=== PATIENT | male | born 1990 | race Caucasian/White ===

== ENCOUNTER 2021-06-08 19:06 | Emergency (ER) | payer OTHER ==
--- OUTSIDE RECORDS SUMMARY | 2021-06-08 19:08 | XMS REPORT | Continuity of Care Document ---
:1990 Author Organization [facility] t Address [address] Reyes [address] [place] [id number] Care Team Providers Name Role Phone Unavailable Unavailable Unavailable Problems This patient has no known problems. Allergies, Adverse Reactions, Alerts This patient has no known allergies or adverse reactions. Medications This patient has no known medications. Immunizations Ordered Immunization Filled Immunization Date Status Commen ts Source Name Name Pfizer COVID-19 Vaccine Pfizer COVID-19 2021-01-14 Completed Vaccine 00:00:00 Procedures This patient has no known procedures. Encounters Start End Encounter Admission Attending Care Care Encounter Source Date/Time Date/Time Type Type Clinicians Facility Department ID 2021-01-14 2021-01-14 Outpatient [facility] [id number] [facility] 00:00:00 00:00:00 V Results This patient has no known results.
[2021-06-08] MEDS ORDERED: VANCOMYCIN 1 GM/VIAL ONE (20:43)
[2021-06-08] MEDS ORDERED: NA CHLORIDE 0.9% 250 ML ONE (20:43)
[2021-06-08 21:01] LABS: Absolute Lymphocytes (CBC) 1.6 K/uL (0.7-4.9); Basophils % 0.5 % (0-1.3); Hematocrit 44.3 % (39.6-49.0); Lymphocytes % 22.3 % (15.3-44.8); MPV 6.9 fL (7.6-11.3); RBC Red Blood Cell Count 5.02 M/uL (4.33-5.43)
--- NOTE | 2021-06-08 21:44 | RAD REPORT ---
EXAM DESCRIPTION: US - Extremity Nonvascular Limited - 06/08/2021 8:22 pm CLINICAL HISTORY: Pain;Swelling COMPARISON: No comparisons TECHNIQUE: Limited sonographic evaluation of the right thigh performed and an area of 2 open wounds. FINDINGS: In the superficial subcutaneous soft tissues 1 centimeter deep to the skin surface there i s a 2 x 1 x 1.8 centimeter heterogeneous hypoechoic collection. More superiorly there is a 1 x 1 x 1 centimeter similar heterogeneous hypoechoic collection in the superficial 1st centimeter subcutaneous tissues. These areas match up with wounds on the skin surface. Infectious/inflammatory collections a re most likely, these may be phlegmonous and not easily drainable. IMPRESSION: Small subcutaneous phlegmonous collections are present in the upper right thigh at the a thiago of open wounds. The collections are approximately 2 cm and 1 cm in size likely containing thickened infectious/inflam matory debris.
[2021-06-08] MEDS ORDERED: BACI/NEOMYCIN/POLY OINT 15GM TOP ONE (22:53)
--- NOTE | 2021-06-08 23:04 | ER ---
Nurse's Notes [facility] Name: Slade Contreras Age: 31 yrs Sex: Male : 1990 Arrival Date: 06/08/2021 Time: 19:10 Bed 26 Private MD: Diagnosis: Cellulitis of right lower limb Presentation: 06/08 19:24 Chief complaint: Patient states: I went to [facility] on of this week for an ld1 infection in my right thigh. They cut, drained and packed the wound. I am still taking my antibiotics but it is not healing very well. Coronavirus screen: At this time, the client does not indicate any symptoms associated with coronavirus-19. Ebola Screen: No symptoms or risks identified at this time. Initial Sepsis Screen: Does the patient meet any 2 criteria? No. Patient's initial sepsis screen is negative. Does the patient have a suspected source of infection? No. Patient's initial sepsis screen is negative. Risk Assessment: Do you want to hurt yourself or someone else? Patient reports no desire to harm self or others. Onset of symptoms was June 08, 2021. 19:24 Method Of Arrival: Ambulatory ld1 19:24 Acuity: RADHA 3 ld1 Triage Assessment: 19:28 General: Appears in no apparent distress. comfortable, Behavior is calm, cooperative, ld1 appropriate for age. Pain: Denies pain. EENT: No signs and/or symptoms were reported regarding the EENT system. Neuro: Level of Consciousness is awake, alert, obeys commands, Oriented to person, place, time, situation, Appropriate for age. Cardiovascular: Capillary refill < 3 seconds Patient's skin is warm and dry. Respiratory: Airway is patent Respiratory effort is even, unlabored, Respiratory pattern is regular, symmetrical. GI: Abdomen is flat, non-distended. : No signs and/or symptoms were reported regarding the genitourinary system. Derm:. Derm: Wound noted right quadriceps. Musculoskeletal: No signs and/or symptoms reported regarding the musculoskeletal system. Historical: - Allergies: 19:28 No Known Allergies; ld1 - Home Meds: 19:28 None [Active]; ld1 - PMHx: 19:28 None; ld1 - PSHx: 19:28 None; ld1 - Immunization history:: Adult Immunizations up to date, Client reports having NOT received the Covid vaccine. - Social history:: Smoking status: Patient denies any tobacco usage or history of. Patient uses alcohol, occasionally. Screenin:01 Abuse screen: none. Nutritional screening: No deficits noted. Tuberculosis screening: sv1 No symptoms or risk factors identified. Fall Risk None identified. Assessment: 21:01 Reassessment: Labs collected and sent. Vancomycin started. Resting quietly.. sv1 23:03 Reassessment: Tolerated Vanco infusion well. No adverse reaction noted. . sv1 23:26 Reassessment: Cleared for discharge to home by the provider.. sv1 Vital Signs: 19:24 BP 133 / 69; Pulse 72; Resp 18; Temp 98.1(O); Pulse Ox 100% on R/A; Weight 86.18 kg; ld1 Height 5 ft. 9 in. (175.26 cm); Pain 0/10; 20:05 BP 122 / 69; Pulse 82; Resp 17; Temp 98.4; Pulse Ox 98% ; sv1 21:03 BP 120 / 69; Pulse 73; Resp 16; Pulse Ox 97% 0 lpm ; sv1 23:02 BP 117 / 67; Pulse 74; Resp 18; Temp 98.5; Pulse Ox 99% 0 lpm ; sv1 19:24 Body Mass Index 28.06 (86.18 kg, 175.26 cm) ld1 ED Course: 19:10 Patient arrived in ED. kc5 19:24 Slade Cortez MD is Attending Physician. kdr 19:26 Triage completed. ld1 19:28 Arm band placed on right wrist. ld1 19:57 Andrew Mcguire, LASHAWN is Primary Nurse. sv1 20:22 US Extrmty Nonvasular Limited In Process Unspecified. EDMS 20:41 Basic Metabolic Panel Sent. sv1 20:41 CBC with Automated Diff Sent. sv1 20:41 Chem 7 Sent. sv1 20:41 CBC with Diff Sent. sv1 21:01 Patient has correct armband on for positive identification. Bed in low position. Call sv1 light in reach. Side rails up X 1. 21:01 No provider procedures requiring assistance completed. Inserted saline lock: 20 gauge sv1 in right antecubital area, using aseptic technique. 23:23 IV discontinued. sv1 Administered Medications: 21:00 Drug: vancoMYCIN 1 grams Route: IVPB; Infused Over: 2 hrs; Site: right antecubital; sv1 22:58 Follow up: Response: No adverse reaction; IV Status: Completed infusion; IV Intake: sv1 250ml 23:00 Drug: Bacitracin Ointment (500 unit/g) 1 application Route: Topical; Site: right thigh; sv1 Intake: 22:58 IV: 250ml; Total: 250ml. sv1 Outcome: 23:03 Discharge ordered by . kdr 23:23 Discharged to home ambulatory. sv1 23:23 Condition: improved 23:23 Discharge instructions given to patient, family. 23:27 Patient left the ED. sv1 Signatures: Dispatcher [employer] EDMS Slade Cortez MD MD kdr Dibbern, Lauren, RN RN andrew1 Judy Shabazz 5 Andrew Mcguire RN RN sv1
--- NOTE | 2021-06-08 23:04 | EDPHYS ---
Physician Documentation [facility] Name: Slade Contreras Age: 31 yrs Sex: Male : 1990 Arrival Date: 06/08/2021 Time: 19:10 Bed 26 Private MD: ED Physician Slade Cortez HPI: 06/08 20:02 This 31 yrs old Male presents to ER via Ambulatory with complaints of LEG INFECTION. kdr 20:02 The patient was seen at [facility] on last Tuesday for swelling and cellulitis to the right kdr thigh. Patient states that overall he had been affected with this problem for about 2 to 3 weeks. At [place], they I indeed an apparent abscess. According the patient they were able to express some pus and a lot of blood. Patient states it was most painful thing he ever experienced. He now claims that the overall cellulitis has improved somewhat but is still very tender and painful and very erythematous and indurated. Onset: The symptoms/episode began/occurred 3 week(s) ago. Severity of symptoms: At their worst the symptoms were mild moderate just prior to arrival, in the emergency department the symptoms are unchanged. The patient has not experienced similar symptoms in the past. The patient has been recently seen at an urgent care, Last Tuesday. Historical: - Allergies: 19:28 No Known Allergies; ld1 - Home Meds: 19:28 None [Active]; ld1 - PMHx: 19:28 None; ld1 - PSHx: 19:28 None; ld1 - Immunization history:: Adult Immunizations up to date, Client reports having NOT received the Covid vaccine. - Social history:: Smoking status: Patient denies any tobacco usage or history of. Patient uses alcohol, occasionally. ROS: 20:02 Constitutional: Negative for fever, chills, and weight loss, Eyes: Negative for injury, kdr pain, redness, and discharge, ENT: Negative for injury, pain, and discharge, Neck: Negative for injury, pain, and swelling, Cardiovascular: Negative for chest pain, palpitations, and edema, Respiratory: Negative for shortness of breath, cough, wheezing, and pleuritic chest pain, Abdomen/GI: Negative for abdominal pain, nausea, vomiting, diarrhea, and constipation, Back: Negative for injury and pain, : Negative for injury, bleeding, discharge, and swelling, MS/Extremity: Negative for injury and deformity, Neuro: Negative for headache, weakness, numbness, tingling, and seizure activity. Psych: Negative for depression, anxiety, suicide ideation, homicidal ideation, and hallucinations, Allergy/Immunology: Negative for hives, rash, and allergies, Endocrine: Negative for neck swelling, polydipsia, polyuria, polyphagia, and marked weight changes, Hematologic/Lymphatic: Negative for swollen nodes, abnormal bleeding, and unusual bruising. 20:02 Skin: Positive for abscess, cellulitis, erythema, swelling. Exam: 20:02 Constitutional: This is a well developed, well nourished patient who is awake, alert, kdr and in no acute distress. Head/Face: Normocephalic, atraumatic. Eyes: Pupils equal round and reactive to light, extra-ocular motions intact. Lids and lashes normal. Conjunctiva and sclera are non-icteric and not injected. Cornea within normal limits. Periorbital areas with no swelling, redness, or edema. Neck: Trachea midline, no thyromegaly or masses palpated, and no cervical lymphadenopathy. Supple, full range of motion without nuchal rigidity, or vertebral point tenderness. No Meningismus. 20:02 Skin: cellulitis, that is mild, that is moderate, induration, that is moderate is noted, located on the lateral aspect of right thigh and right quadriceps. Vital Signs: 19:24 BP 133 / 69; Pulse 72; Resp 18; Temp 98.1(O); Pulse Ox 100% on R/A; Weight 86.18 kg; ld1 Height 5 ft. 9 in. (175.26 cm); Pain 0/10; 20:05 BP 122 / 69; Pulse 82; Resp 17; Temp 98.4; Pulse Ox 98% ; sv1 21:03 BP 120 / 69; Pulse 73; Resp 16; Pulse Ox 97% 0 lpm ; sv1 23:02 BP 117 / 67; Pulse 74; Resp 18; Temp 98.5; Pulse Ox 99% 0 lpm ; sv1 19:24 Body Mass Index 28.06 (86.18 kg, 175.26 cm) ld1 MDM: 20:02 Data reviewed: vital signs, nurses notes, lab test result(s), radiologic studies. kdr Counseling: I had a detailed discussion with the patient and/or guardian regarding: the historical points, exam findings, and any diagnostic results supporting the discharge/admit diagnosis, lab results, radiology results. 23:03 Patient medically screened. kdr 06/08 19:53 Order name: CBC with Diff kdr 06/08 19:53 Order name: Chem 7 kdr 06/08 19:53 Order name: US Extrmty Nonvasular Limited; Complete Time: 22:09 kdr 06/08 19:53 Order name: CBC with Automated Diff; Complete Time: 21:11 EDMS 06/08 19:53 Order name: Basic Metabolic Panel; Complete Time: 21:18 EDMS Administered Medications: 21:00 Drug: vancoMYCIN 1 grams Route: IVPB; Infused Over: 2 hrs; Site: right antecubital; sv1 22:58 Follow up: Response: No adverse reaction; IV Status: Completed infusion; IV Intake: sv1 250ml 23:00 Drug: Bacitracin Ointment (500 unit/g) 1 application Route: Topical; Site: right thigh; sv1 Disposition Summary: 06/08/21 23:03 Discharge Ordered Location: Home kdr Problem: new kdr Symptoms: have improved kdr Condition: Stable kdr Diagnosis - Cellulitis of right lower limb kdr Followup: kdr - With: Private Physician - When: 2 - 3 days - Reason: If symptoms return, Further diagnostic work-up, Recheck today's complaints, Continuance of care, Re-evaluation by your physician Discharge Instructions: - Discharge Summary Sheet kdr - Cellulitis, Adult kdr Forms: - Medication Reconciliation Form kdr - Thank You Letter kdr - Antibiotic Education kdr Signatures: Dispatcher [employer] Slade Florentino MD MD kdr Irma Morillo, RN RN ld1 Andrew Mcguire, LASHAWN RN sv1
[2021-06-08 23:39] VITALS: BP 117/67; TEMP 98.5; O2SAT 99
== END 2021-06-08 23:27 | disposition home or self-care (01) ==
LOC: ER 19:06
DX: L03.115 Cellulitis of right lower limb (principal)
CPT/HCPCS: 96365; 85025; 80048; 36415; 76882; 99284; 96366; J3370; J7050

== ENCOUNTER 2021-10-02 18:14 | Emergency (ER) | payer OTHER ==
--- OUTSIDE RECORDS SUMMARY | 2021-10-02 18:17 | XMS REPORT | Continuity of Care Document ---
:1990 Author Organization [facility] t Address [address] [place] [address] Care Team Providers Name Role Phone Mary Arzola Attending Clinician Unavailable Chance Zuñiga Admitting Clinician Unavailable Payers Payer Name Policy Type Policy Number Effective Date Expiration Date S ource Problems This patient has no known problems. Allergies, Adverse Reactions, Alerts Allergy Allergy Status Severity Reaction(s) Onset Inactive Treating Comm ents Source Name Type Date Date Clinician No Known DA Active U 2007- [facility] Contrast 1-13 Clear Allergie 00:00: [address] No Known DA Active U 2007-06 [facility] Drug -13 Clear Allergie 00:00: [place] [address] No Known DA Active U 2007-06 [facility] Food -13 Clear Allergie 00:00: [address] No Known DA Active U 2007-06 [facility] Other -13 Clear Allergie 00:00: [address] Medications This patient has no known medications. Immunizations Ordered Immunization Filled Immunization Date Status Commen ts Source Name Name Pfizer COVID-19 Vaccine Pfizer COVID-19 2021-01-14 Completed Vaccine 00:00:00 Procedures This patient has no known procedures. Encounters Start End Encounter Admission Attending Care Care Encounter Source Date/Time Date/Time Type Type Clinicians Facility Department ID 2021-08-18 Inpatient KULDIP Morton [facility] [id number] [facility] 16:03:[address] 2021-07-21 Inpatient KULDIP Morton [facility] [id number] [facility] 16:03:00 [facility] [id number] [facility] 2021-07-15 Inpatient ROZ Arzola, [facility] [id number] [facility] 15:55:00 [facility] [id number] [facility] 2021-08-14 2021-08-17 Outpatient ROZ Arzola, [facility] [id number] [facility] 15:10:00 00:00:00 [facility] [id number] [facility] 2021-07-27 2021-07-27 Outpatient ROZ Arzola, [facility] [id number] [facility] 14:55:00 14:55:00 [facility] [id number] [facility] 2021-07-20 2021-07-20 Outpatient ROZ Arzola, [facility] [id number] [facility] 16:11:00 00:00:00 [facility] [id number] [facility] 2021-07-18 2021-07-18 Outpatient ROZ Arzola, KALIECL LABO [id number] [facility] 01:25:00 01:25:00 Agustín [id number] [facility] 2021-07-17 2021-07-17 Outpatient ROZ Arzola, [facility] [id number] [facility] 13:30:00 13:30:00 [facility] [id number] [facility] 2021-01-14 2021-01-14 Outpatient [facility] [id number] [facility] 00:00:00 00:00:00 V Results This patient has no known results.
--- NOTE | 2021-10-02 18:36 | EDPHYS ---
Physician Documentation [facility] Name: Slade Contreras Age: 31 yrs Sex: Male : 1990 Arrival Date: 10/02/2021 Time: 18:17 Bed 10 Private MD: ED Physician Duane Dubois HPI: 10/02 18:36 This 31 yrs old Male presents to ER via Unassigned with complaints of Nose Problem. ms3 18:36 The patient presents with Sore in nare. Onset: The symptoms/episode began/occurred ms3 acutely, 3 day(s) ago. Modifying factors: The symptoms are alleviated by nothing. the symptoms are aggravated by Pressure to nose. Associated signs and symptoms: The patient has no apparent associated signs or symptoms. Severity of symptoms: At their worst the symptoms were severe in the emergency department the symptoms are unchanged Pain is currently a 9 / 10. 31 -year-old male presents for ulceration and nose that has been ongoing for 3 days. Patient states pain is a 9/10 and is described as being sensitive. Patient states touching his nose makes the pain worse. Patient denies alleviating factors. Patient states he has not taken any medications for the pain.. Historical: - Allergies: 18:57 No Known Allergies; ab2 - PMHx: 18:57 None; ab2 - PSHx: 18:57 None; ab2 - Immunization history:: Adult Immunizations up to date. - Social history:: Smoking status: Patient denies any tobacco usage or history of. ROS: 18:36 Constitutional: Negative for fever, and chills. Neck: Negative for injury, pain, and ms3 swelling, Cardiovascular: Negative for chest pain, and palpitations. Respiratory: Negative for shortness of breath, cough, wheezing, and pleuritic chest pain, Abdomen/GI: Negative for abdominal pain, nausea, vomiting, diarrhea, and constipation, MS/Extremity: Negative for injury and deformity, Skin: Negative for injury, rash, and discoloration. 18:36 ENT: Positive for Nose pain. 18:36 All other systems are negative. Exam: 18:36 Constitutional: This is a well developed, well nourished patient who is awake, alert, ms3 and in no acute distress. Head/Face: Normocephalic, atraumatic. Chest/axilla: Normal chest wall appearance and motion. Nontender with no deformity. Cardiovascular: Regular rate and rhythm with a normal S1 and S2. No gallops, murmurs, or rubs. Normal PMI, no JVD. No pulse deficits. Respiratory: Lungs have equal breath sounds bilaterally, clear to auscultation and percussion. No rales, rhonchi or wheezes noted. No increased work of breathing, no retractions or nasal flaring. Abdomen/GI: Soft, non-tender, with normal bowel sounds. No distension or tympany. No guarding or rebound. No evidence of tenderness throughout. 18:36 ENT: Nose: Abscess with drainage in right nare. Vital Signs: 18:54 BP 135 / 87; Pulse 96; Resp 18; Temp 98.3; Pulse Ox 100% on R/A; Weight 83.91 kg; ab2 Height 5 ft. 10 in. (177.80 cm); Pain 8/10; 18:54 Body Mass Index 26.54 (83.91 kg, 177.80 cm) ab2 MDM: 18:35 Patient medically screened. ms3 18:36 Differential diagnosis: nasal abscess. Data reviewed: vital signs, nurses notes. ms3 Counseling: I had a detailed discussion with the patient and/or guardian regarding: the historical points, exam findings, and any diagnostic results supporting the discharge/admit diagnosis, the need for outpatient follow up, to return to the emergency department if symptoms worsen or persist or if there are any questions or concerns that arise at home. ED course: Discussed physical exam and treatment plan with patient. Patient to follow-up with Dr. Millard in 2 to 3 days. Patient understands agrees with plan. All questions were answered. Return precautions discussed include worsening symptoms, or any other concerns. 19:34 ED course: Signed out to me by Dr. Wheeler, pending cbc and bmp, by request from mother, rn not likely to foreign exchange clerk. . 10/02 18:59 Order name: CBC with Diff; Complete Time: 19:46 ms3 10/02 18:59 Order name: BMP; Complete Time: 19:46 ms3 Administered Medications: 20:10 Drug: Bactrim (trimethoprim-sulfamethoxazole) (160 mg-800 mg (DS) 1 tablet Route: PO; ll3 Disposition Summary: 10/02/21 18:35 Discharge Ordered Location: Home ms3 Problem: new ms3 Symptoms: are unchanged ms3 Condition: Stable ms3 Diagnosis - Abscess, furuncle and carbuncle of nose ms3 Followup: ms3 - With: Fany Millard MD - When: 2 - 3 days - Reason: Recheck today's complaints Discharge Instructions: - Discharge Summary Sheet ms3 - Nasal Abscess ms3 Forms: - Medication Reconciliation Form ms3 - Thank You Letter ms3 - Antibiotic Education ms3 - Prescription Opioid Use ms3 Prescriptions: - Bactrim DS 800-160 mg Oral Tablet - take 1 tablet by ORAL route every 12 hours for 10 days; 20 tablet; Refills: 0, ms3 Product Selection Permitted Signatures: Dispatcher [employer] EDMS Duane Dubois MD MD rn Sims, Marcus, DO DO ms3 Zohreh Wolf RN RN ll3 Akash Cardoza ab2 Corrections: (The following items were deleted from the chart) 18:57 18:57 Allergies: No Known Allergies; ab2 ab2 18:57 18:57 PMHx: None; ab2 ab2 18:57 18:57 PSHx: Unable to Obtain; ab2 ab2
[2021-10-02 19:22] LABS: Absolute Lymphocytes (CBC) 1.7 K/uL (0.7-4.9); Lymphocytes % 15.6 % (15.3-44.8); MPV 7.3 fL (7.6-11.3); RBC Red Blood Cell Count 4.98 M/uL (4.33-5.43)
[2021-10-02 19:33] LABS: Potassium 3.6 mmol/L (3.5-5.1)
[2021-10-02] MEDS ORDERED: SMZ./TMP. 800/160 MG TABLET ONE (20:15)
--- NOTE | 2021-10-02 20:20 | ER ---
Nurse's Notes [facility] Name: Slade Contreras Age: 31 yrs Sex: Male : 1990 Arrival Date: 10/02/2021 Time: 18:17 Bed 10 Private MD: Diagnosis: Abscess, furuncle and carbuncle of nose Presentation: 10/02 18:54 Chief complaint: Patient states: "I have had this lump on my nose for 3 days, but it ab2 has gotten bigger over the last day.". Coronavirus screen: Vaccine status: Patient reports receiving the 2nd dose of the covid vaccine. Client denies travel out of the [place] in the last 14 days. At this time, the client does not indicate any symptoms associated with coronavirus-19. Ebola Screen: Patient negative for fever greater than or equal to 101.5 degrees Fahrenheit, and additional compatible Ebola Virus Disease symptoms Patient denies exposure to infectious person. Patient denies travel to an Ebola-affected area in the 21 days before illness onset. No symptoms or risks identified at this time. Initial Sepsis Screen: Does the patient meet any 2 criteria? No. Patient's initial sepsis screen is negative. Does the patient have a suspected source of infection? No. Patient's initial sepsis screen is negative. Risk Assessment: Do you want to hurt yourself or someone else? Patient reports no desire to harm self or others. Onset of symptoms is unknown. 18:54 Method Of Arrival: Ambulatory ab2 18:54 Acuity: RADHA 4 ab2 Triage Assessment: 18:57 General: Appears in no apparent distress. comfortable, Behavior is calm, cooperative, ab2 appropriate for age. Pain: Complains of pain in nose. EENT: No deficits noted. No signs and/or symptoms were reported regarding the EENT system. Reports pain in nose. Neuro: Level of Consciousness is awake, alert, obeys commands, Oriented to person, place, time, situation, Appropriate for age Insurance And Benefits Clerk are equal bilaterally Moves all extremities. Gait is steady, Speech is normal, Facial symmetry appears normal. Cardiovascular: No deficits noted. Denies chest pain, shortness of breath, Patient's skin is warm and dry. Respiratory: Airway is patent Respiratory effort is even, unlabored, Respiratory pattern is regular, symmetrical. GI: No deficits noted. No signs and/or symptoms were reported involving the gastrointestinal system. : No deficits noted. No signs and/or symptoms were reported regarding the genitourinary system. Derm: Abscess located on nose. Musculoskeletal: No deficits noted. No signs and/or symptoms reported regarding the musculoskeletal system. Historical: - Allergies: 18:57 No Known Allergies; ab2 - PMHx: 18:57 None; ab2 - PSHx: 18:57 None; ab2 - Immunization history:: Adult Immunizations up to date. - Social history:: Smoking status: Patient denies any tobacco usage or history of. Screenin:58 Abuse screen: Denies threats or abuse. Denies injuries from another. Nutritional ab2 screening: No deficits noted. Tuberculosis screening: No symptoms or risk factors identified. Fall Risk None identified. Vital Signs: 18:54 BP 135 / 87; Pulse 96; Resp 18; Temp 98.3; Pulse Ox 100% on R/A; Weight 83.91 kg; ab2 Height 5 ft. 10 in. (177.80 cm); Pain 8/10; 18:54 Body Mass Index 26.54 (83.91 kg, 177.80 cm) ab2 ED Course: 18:17 Patient arrived in ED. ja2 18:27 Alexx Wheeler DO is Attending Physician. ms3 18:35 Fany Millard MD is Referral Physician. ms3 18:57 Triage completed. ab2 18:58 Arm band placed on left wrist. ab2 18:58 No provider procedures requiring assistance completed. ab2 18:59 Patient has correct armband on for positive identification. Bed in low position. Call ab2 light in reach. 19:33 Attending Physician role handed off by Alexx Wheeler DO rn 19:33 Duane Dubois MD is Attending Physician. rn 20:19 Patient did not have IV access during this emergency room visit. ll3 Administered Medications: 20:10 Drug: Bactrim (trimethoprim-sulfamethoxazole) (160 mg-800 mg (DS) 1 tablet Route: PO; ll3 Outcome: 18:35 Discharge ordered by . ms3 20:19 Discharged to home ambulatory, with family. ll3 20:19 Condition: stable 20:19 Discharge instructions given to patient, family, Instructed on discharge instructions, follow up and referral plans. medication usage, Demonstrated understanding of instructions, follow-up care, medications, Prescriptions given X 1. 20:20 Patient left the ED. ll3 Signatures: Duane Dubois MD MD rn Sims, Marcus, DO DO ms3 Tere Weber2 Zohreh Wolf RN RN ll3 Akash Cardoza ab2 Corrections: (The following items were deleted from the chart) 18:57 18:57 Allergies: No Known Allergies; ab2 ab2 18:57 18:57 PMHx: None; ab2 ab2 18:57 18:57 PSHx: Unable to Obtain; ab2 ab2
[2021-10-02 23:39] VITALS: BP 135/87; TEMP 98.3; O2SAT 100
== END 2021-10-02 20:20 | disposition home or self-care (01) ==
LOC: ER 18:14
DX: J34.0 Abscess, furuncle and carbuncle of nose (principal)
CPT/HCPCS: 36415; 80048; 85025; 99283

== ENCOUNTER 2022-01-23 20:19 | Emergency (ER) | payer OTHER ==
--- OUTSIDE RECORDS SUMMARY | 2022-01-23 20:22 | XMS REPORT | Continuity of Care Document ---
:1990 Author Organization [facility] t Address [address] [place] [address] Care Team Providers Name Role Phone Agustín Arzola Attending Clinician Unavailable Kendra Zuñiga Admitting Clinician Unavailable Payers Payer Name Policy Type Policy Number Effective Date Expiration Date S ource Problems This patient has no known problems. Allergies, Adverse Reactions, Alerts Allergy Allergy Status Severity Reaction(s) Onset Inactive Treating Comm ents Source Name Type Date Date Clinician No Known DA Active U 2007- [facility] Contrast 1-13 Clear Allergie 00:00: Granados s [address] [place] [address] No Known DA Active U 2007-06 [facility] Drug - Clear Allergie 00:00: Granados s [address] [place] [address] No Known DA Active U 2007-06 [facility] Food - Clear Allergie 00:00: Granados [address] No Known DA Active U 2007-06 [facility] Other -13 Clear Allergie 00:00: Granados [address] Medications This patient has no known medications. Immunizations Ordered Immunization Filled Immunization Date Status Commen ts Source Name Name Pfizer COVID-19 Vaccine Pfizer COVID-19 2021-01-14 Completed Vaccine 00:00:00 Procedures This patient has no known procedures. Encounters Start End Encounter Admission Attending Care Care Encounter Source Date/Time Date/Time Type Type Clinicians Facility Department ID 2021-08-18 Inpatient KULDIP Morton [facility] [id number] [facility] 16:03:00 Agustín [id number] [facility] 2021-07-21 Inpatient ROZ Arzola, HC[facility] [id number] [facility] 16:03:00 [facility] [id number] [facility] 2021-07-15 Inpatient ROZ Arzola, [facility] [id number] [facility] 15:55:00 [facility] [id number] [facility] 2021-08-14 2021-08-17 Outpatient ROZ Arzola, KALIEMN [facility] [id number] [facility] 15:10:00 00:00:00 [facility] [id number] [facility] 2021-07-27 2021-07-27 Outpatient ROZ Arzola, [facility] [id number] [facility] 14:55:00 14:55:00 [facility] [id number] [facility] 2021-07-20 2021-07-20 Outpatient ROZ Arzola, KALIEMN [facility] [id number] [facility] 16:11:00 00:00:00 [facility] [id number] [facility] 2021-07-18 2021-07-18 Outpatient ROZ Arzola, KALIECL LABO [id number] [facility] 01:25:00 01:25:00 [facility] [id number] [facility] 2021-07-17 2021-07-17 Outpatient ROZ Arzola, KALIEMN [facility] [id number] [facility] 13:30:00 13:30:00 [facility] [id number] [facility] 2021-01-14 2021-01-14 Outpatient GCCOVIDV GCCOVIDV [id number] [facility] 00:00:00 00:00:00 V Results This patient has no known results.
[2022-01-23] MEDS ORDERED: NA CHLORIDE 0.9% 1,000 ML ONE (21:44)
--- NOTE | 2022-01-23 21:54 | RAD REPORT ---
EXAM DESCRIPTION: US - Extremity Nonvascular Limited - 01/23/2022 9:37 pm CLINICAL HISTORY: possible fluid collection Abdominal pain COMPARISON: <Comparisons> TECHNIQUE: Real-time sonographic evaluation of the area of interest was performed. FINDINGS: No fluid pockets are identified. No well-formed fluid collection.
[2022-01-23 22:19] LABS: Absolute Lymphocytes (CBC) 1.2 K/uL (0.7-4.9); Hematocrit 46.7 % (39.6-49.0); Lymphocytes % 8.7 % (15.3-44.8); MCV 88.9 fL (80-100); MPV 7.1 fL (7.6-11.3); RBC Red Blood Cell Count 5.25 M/uL (4.33-5.43)
[2022-01-23 22:29] LABS: Protime INR 0.99
[2022-01-23 22:35] LABS: ALT/SGPT 35 U/L (12-78); AST/SGOT 16 U/L (15-37); Albumin 4.1 g/dL (3.4-5.0); Alkaline Phosphatase 95 U/L (45-117); BUN Blood Urea Nitrogen 15 mg/dL (7-18); Bicarbonate 29 mmol/L (21-32); Bilirubin Total 0.4 mg/dL (0.2-1.0); Glomerular Filtration Rate 90 ml/min (=/>90); Glucose Level 104 mg/dL (74-106); Potassium 3.5 mmol/L (3.5-5.1); Protein, Total 7.7 g/dL (6.4-8.2); Sodium Level 138 mmol/L (136-145)
[2022-01-23] MEDS ORDERED: METHYLPREDNISOLONE 125 MG INJ ONE (22:45)
[2022-01-23] MEDS ORDERED: DIPHENHYDRAMINE 50 MG/ML VIAL ONE (22:45)
[2022-01-23] MEDS ORDERED: FAMOTIDINE 20 MG/2 ML VIAL IV ONE (22:46)
[2022-01-23 22:48] LABS: Bilirubin Direct < 0.1 mg/dL (0-0.2)
[2022-01-23 23:23] LABS: Barbiturates NEGATIVE (NEGATIVE); Benzodiazepines NEGATIVE (NEGATIVE); Cocaine NEGATIVE (NEGATIVE); METHAMPHETAM NEGATIVE (NEGATIVE); Methadone NEGATIVE (NEGATIVE); Opiates NEGATIVE (NEGATIVE); Phencyclidine NEGATIVE (NEGATIVE); THC Cannibis NEGATIVE (NEGATIVE)
[2022-01-23] MEDS ORDERED: CLINDAMYCIN 900MG/D5W 900 MG/50 ML IVPB IV ONE (23:48)
--- NOTE | 2022-01-23 23:58 | ER ---
Nurse's Notes [facility] Name: Slade Contreras Age: 32 yrs Sex: Male : 1990 Arrival Date: 01/23/2022 Time: 20:20 Bed 10 Private MD: Diagnosis: Rash and other nonspecific skin eruption;Cellulitis of left lower limb Presentation: 01/23 20:29 Chief complaint: Patient states: sore to left hip and left arm diagnosed with Poison kl DESIREE x 3 days ago received a steroid shot but did not get prescriptions filled. Coronavirus screen: Vaccine status: Patient reports receiving the 2nd dose of the covid vaccine. Ebola Screen: Patient negative for fever greater than or equal to 101.5 degrees Fahrenheit, and additional compatible Ebola Virus Disease symptoms. Initial Sepsis Screen: Does the patient meet any 2 criteria? No. Patient's initial sepsis screen is negative. Risk Assessment: Do you want to hurt yourself or someone else? Patient reports no desire to harm self or others. Onset of symptoms was January 19, 2022. 20:29 Method Of Arrival: Ambulatory 20:29 Acuity: RADHA 4 22:15 Acuity: RADHA 3 kl 01/24 00:17 Initial Sepsis Screen: Does the patient have a suspected source of infection? No. kl Patient's initial sepsis screen is negative. Triage Assessment: 01/23 20:32 General: Appears uncomfortable, Behavior is calm, cooperative. Pain: Complains of pain kl in left hip Pain currently is 8 out of 10 on a pain scale. Historical: - Allergies: 20:32 No Known Allergies; kl - Home Meds: 20:32 None [Active]; kl - PMHx: 20:32 None; kl - PSHx: 20:32 None; kl - Immunization history:: Adult Immunizations up to date. - Social history:: Smoking status: Patient denies any tobacco usage or history of. Screenin:12 Abuse screen: Denies threats or abuse. Nutritional screening: No deficits noted. kl Tuberculosis screening: No symptoms or risk factors identified. Fall Risk None identified. Assessment: 23:11 Reassessment: Patient and/or family updated on plan of care and expected duration. Pain kl level reassessed. Patient states feeling better. Patient states symptoms have improved. Vital Signs: 20:29 BP 142 / 101; Pulse 107; Resp 18; Temp 97.8; Pulse Ox 98% ; Weight 83.91 kg (R); Height kl 5 ft. 10 in. (177.80 cm); Pain 8/10; 23:17 BP 119 / 70; Pulse 72; Resp 16; Pulse Ox 98% on R/A; Pain 0/10; kl 20:29 Body Mass Index 26.54 (83.91 kg, 177.80 cm) ED Course: 20:20 Patient arrived in ED. as 20:32 Triage completed. kl 20:42 Oz Breen MD is Attending Physician. [facility] 21:39 US Extrmty Nonvasular Limited In Process Unspecified. EDMS 22:30 Inserted saline lock: 20 gauge in right antecubital area, using aseptic technique. kl 23:12 No apparent distress. Resting quietly. kl 23:19 UDS Sent. kl 23:55 Yousuf Kaminski MD is Referral Physician. [facility] 01/24 00:16 No provider procedures requiring assistance completed. IV discontinued, intact, kl bleeding controlled, No redness/swelling at site. Pressure dressing applied. 00:16 Arm band placed on left wrist. kl 00:17 Patient has correct armband on for positive identification. kl Administered Medications: 01/23 21:57 Drug: NS 0.9% 1000 ml Route: IV; Rate: 1000 ml; Site: right antecubital; kl 22:44 Follow up: IV Status: Completed infusion; IV Intake: 1000ml kl 22:35 Drug: Pepcid (famotidine) 20 mg Route: IVP; Site: right antecubital; kl 23:11 Follow up: Response: No adverse reaction kl 22:40 Drug: Benadryl (diphenhydrAMINE) 50 mg Route: IVP; Site: right antecubital; kl 23:11 Follow up: Response: Marked relief of symptoms kl 22:43 Drug: SOLU-Medrol (methylPrednisoLONE) 125 mg Route: IVP; Site: right antecubital; kl 23:11 Follow up: Response: No adverse reaction kl 23:43 Drug: Clindamycin 900 mg Route: IVPB; Infused Over: 30 mins; Site: right antecubital; 01/24 00:15 Follow up: IV Status: Completed infusion; IV Intake: 50ml kl 00:15 Follow up: Response: No adverse reaction gill Medication: 00:17 VIS not applicable for this client. kl Intake: 01/23 22:44 IV: 1000ml; Total: 1000ml. kl 01/24 00:15 IV: 50ml; Total: 1050ml. kl Outcome: 01/23 23:58 Discharge ordered by MD. perez 01/24 00:16 Discharged to home ambulatory. kl Condition: improved Discharge instructions given to patient, Instructed on discharge instructions, follow up and referral plans. medication usage, wound care, Demonstrated understanding of instructions, follow-up care, medications, wound care, Prescriptions given X 2. 00:17 Patient left the ED. Signatures: Dispatcher [employer] EDKatt Holland RN RN kl Martinez, Amelia as Holmes, Maurice, MD MD mh7
--- NOTE | 2022-01-23 23:58 | EDPHYS ---
Physician Documentation [facility] Name: Slade Contreras Age: 32 yrs Sex: Male : 1990 Arrival Date: 01/23/2022 Time: 20:20 Bed 10 Private MD: ED Physician Oz Breen HPI: 01/23 21:12 This 32 yrs old Male presents to ER via Ambulatory with complaints of Rash - poison mh7 slade, Skin Sore(s). 21:12 The patient's rash thought to be caused by Dermatitis. The rash is located on the right mh7 arm and left arm and left hip. The rash can be described as erythematous. Onset: The symptoms/episode began/occurred 2 week(s) ago. Associated signs and symptoms: Pertinent positives: itching, Pertinent negatives: difficulty breathing, fever, nausea, swelling of lips, swelling of throat, swelling of tongue, vomiting, wheezing. Severity of symptoms: At their worst the symptoms were moderate 5 day(s) ago, in the emergency department the symptoms have improved moderately. Treatment given at home: steroid lotion/cream. Seen at an outside ER 3 days ago. States rash started about 2 weeks ago [place] He thinks he may have come into contact with poison slade and had been applying Cortisone cream. he went to an ER 3 days ago and got a steroid shot and some prescriptions which he has not gotten filled. Denies fever, nausea, vomiting, SOB.. Historical: - Allergies: 20:32 No Known Allergies; kl - Home Meds: 20:32 None [Active]; kl - PMHx: 20:32 None; kl - PSHx: 20:32 None; kl - Immunization history:: Adult Immunizations up to date. - Social history:: Smoking status: Patient denies any tobacco usage or history of. ROS: 21:12 Constitutional: Negative for fever, chills, and weight loss, Eyes: Negative for injury, mh7 pain, redness, and discharge, ENT: Negative for injury, pain, and discharge, Neck: Negative for injury, pain, and swelling, Cardiovascular: Negative for chest pain, palpitations, and edema, Respiratory: Negative for shortness of breath, cough, wheezing, and pleuritic chest pain, Abdomen/GI: Negative for abdominal pain, nausea, vomiting, diarrhea, and constipation, Back: Negative for injury and pain, : Negative for injury, bleeding, discharge, and swelling, MS/Extremity: Negative for injury and deformity, Neuro: Negative for headache, weakness, numbness, tingling, and seizure, Psych: Negative for depression, anxiety, suicide ideation, homicidal ideation, and hallucinations, Endocrine: Negative for neck swelling, polydipsia, polyuria, polyphagia, and marked weight changes, Hematologic/Lymphatic: Negative for swollen nodes, abnormal bleeding, and unusual bruising. Exam: 21:12 Constitutional: This is a well developed, well nourished patient who is awake, alert, mh7 and in no acute distress. Head/Face: Normocephalic, atraumatic. Eyes: Pupils equal round and reactive to light, extra-ocular motions intact. Lids and lashes normal. Conjunctiva and sclera are non-icteric and not injected. Cornea within normal limits. Periorbital areas with no swelling, redness, or edema. ENT: Nares patent. No nasal discharge, no septal abnormalities noted. Tympanic membranes are normal and external auditory canals are clear. Oropharynx with no redness, swelling, or masses, exudates, or evidence of obstruction, uvula midline. Mucous membranes moist. Neck: Trachea midline, no thyromegaly or masses palpated, and no cervical lymphadenopathy. Supple, full range of motion without nuchal rigidity, or vertebral point tenderness. No Meningismus. Chest/axilla: Normal chest wall appearance and motion. Nontender with no deformity. No lesions are appreciated. Respiratory: Lungs have equal breath sounds bilaterally, clear to auscultation and percussion. No rales, rhonchi or wheezes noted. No increased work of breathing, no retractions or nasal flaring. Abdomen/GI: Soft, non-tender, with normal bowel sounds. No distension or tympany. No guarding or rebound. No evidence of tenderness throughout. Back: No spinal tenderness. No costovertebral tenderness. Full range of motion. Neuro: Awake and alert, GCS 15, oriented to person, place, time, and situation. Cranial nerves II-XII grossly intact. Motor strength 5/5 in all extremities. Sensory grossly intact. Cerebellar exam normal. Normal gait. Psych: Awake, alert, with orientation to person, place and time. Behavior, mood, and affect are within normal limits. 21:12 Cardiovascular: Regular rate and rhythm with a normal S1 and S2. No gallops, murmurs, mh7 or rubs. Normal PMI, no JVD. No pulse deficits. 21:12 Skin: cellulitis, that is mild, confluent, on the left proximal anterior lateral mh7 thigh, rash a mild rash is noted, rash can be described as erythematous, nonspecific, raised, on the right arm and left arm. Vital Signs: 20:29 BP 142 / 101; Pulse 107; Resp 18; Temp 97.8; Pulse Ox 98% ; Weight 83.91 kg (R); Height kl 5 ft. 10 in. (177.80 cm); Pain 8/10; 23:17 BP 119 / 70; Pulse 72; Resp 16; Pulse Ox 98% on R/A; Pain 0/10; kl 20:29 Body Mass Index 26.54 (83.91 kg, 177.80 cm) kl MDM: 23:50 Differential diagnosis: impetigo, allergic reaction, cellulitis, abscess, contact mh7 dermatitis, allergic reaction. Data reviewed: vital signs, nurses notes, old medical records, lab test result(s), CBC, electrolytes, urine drug screen, radiologic studies, ultrasound. Data interpreted: Pulse oximetry: on room air is 98 %. Interpretation: normal. Counseling: I had a detailed discussion with the patient and/or guardian regarding: the historical points, exam findings, and any diagnostic results supporting the discharge/admit diagnosis, lab results, radiology results, the need for outpatient follow up, to return to the emergency department if symptoms worsen or persist or if there are any questions or concerns that arise at home. Response to treatment: the patient's symptoms have markedly improved after treatment. ED course: Feels better, well appearing, NAD, VSS, NVI, no focal neurological deficits. Rash has improved and tolerating PO intake. Discussed test results and findings. Patient requests to be discharged from the ER at this time. He will follow up with his doctor. Advised to get his prescriptions filled and to return to the ER if worsening of symptoms or any other concerns.. 23:58 Patient medically screened. [facility] 01/23 21:06 Order name: CBC with Diff; Complete Time: 22:34 [facility] 01/23 21:06 Order name: Basic Metabolic Panel; Complete Time: 22:59 [facility] 01/23 21:06 Order name: Protime (+inr); Complete Time: 22:34 [facility] 01/23 21:06 Order name: Ptt, Activated; Complete Time: 22:34 [facility] 01/23 21:06 Order name: LFT's; Complete Time: 22:59 [facility] 01/23 21:06 Order name: Blood Culture Adult (2) [facility] 01/23 21:06 Order name: Saline Lock; Complete Time: 21:58 [facility] 01/23 21:08 Order name: US Extrmty Nonvasular Limited; Complete Time: 21:57 [facility] 01/23 21:11 Order name: UDS; Complete Time: 23:29 Administered Medications: 21:57 Drug: NS 0.9% 1000 ml Route: IV; Rate: 1000 ml; Site: right antecubital; kl 22:44 Follow up: IV Status: Completed infusion; IV Intake: 1000ml kl 22:35 Drug: Pepcid (famotidine) 20 mg Route: IVP; Site: right antecubital; kl 23:11 Follow up: Response: No adverse reaction kl 22:40 Drug: Benadryl (diphenhydrAMINE) 50 mg Route: IVP; Site: right antecubital; kl 23:11 Follow up: Response: Marked relief of symptoms kl 22:43 Drug: SOLU-Medrol (methylPrednisoLONE) 125 mg Route: IVP; Site: right antecubital; kl 23:11 Follow up: Response: No adverse reaction kl 23:43 Drug: Clindamycin 900 mg Route: IVPB; Infused Over: 30 mins; Site: right antecubital; kl 01/24 00:15 Follow up: IV Status: Completed infusion; IV Intake: 50ml kl 00:15 Follow up: Response: No adverse reaction kl Disposition Summary: 01/23/22 23:58 Discharge Ordered Location: Home [facility] Problem: an ongoing problem [facility] Symptoms: have improved [facility] Condition: Stable [facility] Diagnosis - Rash and other nonspecific skin eruption [facility] - Cellulitis of left lower limb [facility] Followup: [facility] - With: Private Physician - When: 1 - 2 days - Reason: Worsening of condition, Recheck today's complaints, Continuance of care, Re-evaluation by your physician Followup: [facility] - With: Yousuf Kaminski MD - When: 1 - 2 days - Reason: Worsening of condition, Recheck today's complaints Discharge Instructions: - Discharge Summary Sheet [facility] - Cellulitis, Adult, [id number] [facility] - Rash, Adult, Thoh-sa-Nare [facility] Forms: - Medication Reconciliation Form [facility] - Thank You Letter [facility] - Antibiotic Education [facility] - Prescription Opioid Use [facility] Prescriptions: - Cephalexin 500 mg Oral Capsule - take 1 capsule by ORAL route every 6 hours for 10 days; 40 capsule; Refills: 0, [facility] Product Selection Permitted - Bactrim DS 800-160 mg Oral Tablet - take 1 tablet by ORAL route every 12 hours for 10 days; 20 tablet; Refills: 0, [facility] Product Selection Permitted Signatures: Dispatcher [employer] Katt Patel RN RN Oz Conte MD MD [facility]
[2022-01-24 01:15] VITALS: O2SAT 98
[2022-01-24 01:19] VITALS: BP 142/101; TEMP 97.8
== END 2022-01-24 00:17 | disposition home or self-care (01) ==
LOC: ER 20:19
DX: R21 Rash and other nonspecific skin eruption (principal); L03.116 Cellulitis of left lower limb
CPT/HCPCS: 96365; 96361; 87040 ×2; 85025; 80048; 36415; 85610; 80076; 85730; 80307; 76882; 96375; 99284; J1200; J7030; J2930